=== PATIENT | male | born 1955 | race Asian ===

== ENCOUNTER 2023-10-30 07:27 | Day surgery (SDC) | payer MEDICARE, OTHER ==
[~2023-10-30] VITALS: Ht 160 cm; Wt 59.9 kg
[2023-10-30] MEDS ORDERED: fentaNYL citrate 0.05 MG/ML VIAL ONE (08:09)
[2023-10-30] MEDS ORDERED: LIDOCAINE 2% 100 MG/5 ML UJET TP ONE ×2 (08:09→12:50)
[2023-10-30] MEDS ORDERED: fentaNYL citrate 0.05 MG/ML VIAL IVP ONE (12:50)
== END 2023-10-30 09:50 | disposition home or self-care (01) ==
LOC: MDS 07:27 → MMU 07:29 → MDS 09:50
PROVIDERS: ATTEND Internal Medicine Gastroenterology
DX: K62.5 Hemorrhage of anus and rectum (principal); K63.5 Polyp of colon; K57.30 Diverticulosis of large intestine without perforation or abscess without bleeding; K64.8 Other hemorrhoids; Z86.010 Personal history of colon polyps; E78.5 Hyperlipidemia, unspecified; Z79.82 Long term (current) use of aspirin; Z79.899 Other long term (current) drug therapy
CPT/HCPCS: 45380; 88305; J3010